=== PATIENT | male | born 1960 | race Caucasian/White ===

== ENCOUNTER 2022-02-28 13:09 | Outpatient (RCR) | payer BC, SELFPAY | END 2022-07-12 09:18 | disposition home or self-care (01) | LOC: HO.WCC 13:09 | PROVIDERS: PCP Physician Assistant; Visit Provider Surgery | DX: E11.621 Type 2 diabetes mellitus with foot ulcer (principal); L97.512 Non-pressure chronic ulcer of other part of right foot with fat layer exposed; Z79.84 Long term (current) use of oral hypoglycemic drugs; Z79.01 Long term (current) use of anticoagulants; Z79.82 Long term (current) use of aspirin; Z79.899 Other long term (current) drug therapy; Z86.16 Personal history of COVID-19 | CPT/HCPCS: 11042; 11043; 11045; 97605; 97606; 99212 ==